=== PATIENT | female | born 1990 | race African-American/Black ===

== ENCOUNTER 2016-09-03 17:34 | Emergency (ER) | payer MEDICARE, MEDICAID ==
[~2016-09-03] VITALS: Ht 157.5 cm; Wt 55.0 kg
[2016-09-03 17:35] VITALS: BP 123/64; PULSE 128; RESP 20; TEMP 99.6; O2SAT 97
== END 2016-09-03 19:14 | disposition left against medical advice (07) ==
LOC: NED 17:34
DX: R10.9 Unspecified abdominal pain (principal); Z53.21 Procedure and treatment not carried out due to patient leaving prior to being seen by health care provider
CPT/HCPCS: 99281

== ENCOUNTER 2017-04-12 08:40 | Emergency (ER) | payer MEDICARE, MEDICAID ==
[~2017-04-12] VITALS: Ht 157.5 cm; Wt 50.0 kg
[2017-04-12 08:41] VITALS: BP 111/76; PULSE 116; RESP 20; TEMP 98.9; O2SAT 100
[2017-04-12] MEDS ORDERED: ONDANSETRON ODT 4 MG TAB PO ONE (09:15)
[2017-04-12 09:44] LABS: BACTERIA, URINE MANY /hpf; BLOOD, URINE MOD (NEG); COMMENT (UR) CULTURE INDICATED; CULTURE IF INDICATED CULTURE INDICATED; GLUCOSE,URINE NEG (NEG); KETONE, URINE 10 mg/dL (NEG); MUCUS URINE FEW /lpf (OCC); NITRITE,URINE POS (NEG); SQUAMOUS EPITHELIAL CELL URINE 6 /hpf (0-5); URINE COLOR YELLOW (YELLW/STRAW)
[2017-04-12] MEDS ORDERED: PROCHLORPERAZINE INJ 10 MG/2 ML VIAL IM PRN (10:00)
[2017-04-12] MEDS ORDERED: ONDANSETRON ODT 4 MG TAB PO SCH (10:00)
[2017-04-12] MEDS ORDERED: LOPERAMIDE HCL 2 MG CAP PO PRN (10:00)
[2017-04-12] MEDS ORDERED: CEPH-460 PO (10:10)
--- NOTE | 2017-04-12 10:10 | PD ---
HPI Chief Complaint: Abdominal Pain Time Seen by Provider: 09:04 Travel History International Travel<30 days: No Contact w/Intl Traveler<30days: No Traveled to known affect area: No History of Present Illness HPI Is a 27 year-old woman presents emergency department complaining of abdominal pain in the left side of her abdomen ongoing for the past couple days associated with some nausea, slight headache, that she attributes to drinking too much soda. No urinary symptoms. No vaginal discharge or vaginal bleeding. Last menstrual period was about 2 weeks ago. She sexually active one male partner. Otherwise has been feeling generally well and healthy. History Past Medical History Medical History: Denies Significant Hx LMP: 03/28/17 : 4 Para: 4 Past Surgical History Surgical History: No Previous Surgery Social History Alcohol Use: No Tobacco Use: No Allergies-Medications (Allergen,Severity, Reaction): Coded Allergies: acetaminophen (Unverified Adverse Reaction, Severe, Nausea/Vomiting, 04/12) codeine (Unverified Adverse Reaction, Severe, Nausea/Vomiting, 04/12/17) naproxen (Unverified Adverse Reaction, Severe, Nausea/Vomiting, 04/12/17) tramadol (Unverified Adverse Reaction, Severe, Nausea/Vomiting, 04/12/17) Reported Meds & Prescriptions Reported Meds & Active Scripts Active No Active Prescriptions or Reported Medications Review of Systems Except as stated in HPI: all other systems reviewed are Neg Physical Exam Narrative GENERAL: Well-appearing 27 year-old woman, no acute distress. SKIN: Focused skin assessment warm/dry. CARDIOVASCULAR: Regular rate and rhythm. No murmur appreciated. RESPIRATORY: No accessory muscle use. Clear to auscultation. Breath sounds equal bilaterally. GASTROINTESTINAL: Abdomen soft, non-tender, nondistended. Hepatic and splenic margins not palpable. MUSCULOSKELETAL: No obvious deformities. No clubbing. No cyanosis. No edema. NEUROLOGICAL: Awake and alert. No obvious cranial nerve deficits. Motor grossly within normal limits. Normal speech. PSYCHIATRIC: Appropriate mood and affect; insight and judgment normal. Data Data Last Documented VS Vital Signs Date Time Temp Pulse Resp B/P (MAP) Pulse Ox O2 Delivery O2 Flow Rate FiO2 04/12/17 08:41 98.9 116 20 111/76 (88) 100 Room Air Orders Orders Urinalysis - C+S If Indicated (04/12/17 08:47) Ed Urine Pregnancytest Poc (04/12/17 08:47) Ondansetron Odt (Zofran Odt) (04/12/17 09:15) Urine Culture (04/12/17 09:00) Ondansetron Odt (Zofran Odt) (04/12/17 10:00) Prochlorperazine Inj (Compazine Inj) (04/12/17 10:00) Loperamide (Imodium) (04/12/17 10:00) Labs Laboratory Tests Test 04/12/17 09:00 Urine Color YELLOW Urine Turbidity HAZY Urine pH 6.0 Urine Specific [place] 1.019 Urine Protein TRACE mg/dL Urine Glucose (UA) NEG mg/dL Urine Ketones 10 mg/dL Urine Occult Blood MOD Urine Nitrite POS Urine Bilirubin NEG Urine Urobilinogen LESS THAN 2.0 MG/DL Urine Leukocyte Esterase TRACE Urine RBC 3 /hpf Urine WBC 9 /hpf Urine Squamous Epithelial Cells 6 /hpf Urine Bacteria MANY /hpf Urine Mucus FEW /lpf Microscopic Urinalysis Comment CULTURE INDICATED MDM Medical Decision Making Medical Screen Exam Complete: Yes Emergency Medical Condition: Yes Interpretation(s) UA: UA with positive nitrites, 9 wbc's. Differential Diagnosis UTI, functional abdominal pain, gastritis, colitis, other Narrative Course While 27-year-old with left-sided abdominal pain, positive urine, no urinary or symptoms. We'll treat with antibiotics, recommend close follow-up. Diagnosis Primary Impression: Abdominal pain Additional Impression: UTI (urinary tract infection) Additional Instructions: Take antibiotics as prescribed. Return to the emergency department for any new or worsening symptoms. Med/Other Pt SpecificInfo: Prescription(s) given Scripts Cephalexin (Keflex) 500 Mg Cap 500 MG PO Q8H for Infection for 7 Days, #21 CAP 0 Refills Prov: Adalberto Mcneill MD 04/12/17 Disposition: 01 DISCHARGE HOME Condition: Stable Adalberto Mcneill MD Apr 12, 2017 10:10
== END 2017-04-12 10:20 | disposition home or self-care (01) ==
LOC: NEPC 08:40
DX: R10.9 Unspecified abdominal pain (principal); N39.0 Urinary tract infection, site not specified; B96.20 Unspecified Escherichia coli [E. coli] as the cause of diseases classified elsewhere
CPT/HCPCS: 81001; 84703; 87077; 87086; 87186; 99283

== ENCOUNTER 2017-08-25 19:16 | Emergency (ER) | payer MEDICARE, MEDICAID ==
[~2017-08-25] VITALS: Ht 157.5 cm; Wt 46.4 kg
[~2017-08-25 19:16] MED LIST: CEPH-460 PO
[2017-08-25 19:40] VITALS: BP 95/54; PULSE 85; RESP 18; TEMP 98.2; O2SAT 100
--- NOTE | 2017-08-25 20:11 | PD ---
HPI Chief Complaint: Abdominal Pain Time Seen by Provider: 20:04 Travel History International Travel<30 days: No Contact w/Intl Traveler<30days: No Traveled to known affect area: No History of Present Illness HPI 27-year-old female presents for evaluation of abdominal pain. Symptoms started 1 week ago. The pain is a sharp constant pain left lower quadrant with no aggravating or relieving factors. She reports 2 episodes of vomiting yesterday but none today. She denies vaginal bleeding or discharge, dysuria, increased urinary frequency or hesitancy, flank pain, fevers or chills, diarrhea or constipation. She is sexually active with one male partner. Her last menstrual period was July 21. She has no other complaints at this time. [facility] Past Medical History Medical History: Denies Significant Hx Diminished Hearing: No Hypertension: Yes Immunizations Current: Yes Tetanus Vaccination: Never Vaccinated Influenza Vaccination: Yes ?: Not LMP: 07/21/17 : 4 Para: 4 Miscarriage: 0 : 0 Past Surgical History Surgical History: No Previous Surgery Social History Alcohol Use: No Tobacco Use: No Substance Use: No Allergies-Medications (Allergen,Severity, Reaction): Coded Allergies: acetaminophen (Unverified Adverse Reaction, Severe, Nausea/Vomiting, ) codeine (Unverified Adverse Reaction, Severe, Nausea/Vomiting, 08/25/17) naproxen (Unverified Adverse Reaction, Severe, Nausea/Vomiting, 08/25/17) tramadol (Unverified Adverse Reaction, Severe, Nausea/Vomiting, 08/25/17) Reported Meds & Prescriptions Reported Meds & Active Scripts Active No Active Prescriptions or Reported Medications Review of Systems Except as stated in HPI: all other systems reviewed are Neg Physical Exam Narrative GENERAL: Well-nourished female no acute distress SKIN: Warm and dry. HEAD: Atraumatic. Normocephalic. EYES: Pupils equal and round. No scleral icterus. No injection or drainage. ENT: No nasal bleeding or discharge. Mucous membranes pink and moist. NECK: Trachea midline. No JVD. CARDIOVASCULAR: Regular rate and rhythm. No murmur appreciated. RESPIRATORY: No accessory muscle use. Clear to auscultation. Breath sounds equal bilaterally. GASTROINTESTINAL: Abdomen soft, mild focal left lower quadrant tenderness without guarding. No CVA tenderness. Pelvic examination the presence of a female nurse reveals thin yellow discharge. There is no cervical motion tenderness or adnexal tenderness. MUSCULOSKELETAL: No obvious deformities. No clubbing. No cyanosis. No edema. NEUROLOGICAL: Awake and alert. No obvious cranial nerve deficits. Motor grossly within normal limits. Normal speech. PSYCHIATRIC: Appropriate mood and affect; insight and judgment normal. Data Data Last Documented VS Vital Signs Date Time Temp Pulse Resp B/P (MAP) Pulse Ox O2 Delivery O2 Flow Rate FiO2 08/25/17 19:40 98.2 85 18 95/54 (68) 100 Orders Orders Complete Blood Count With Diff (08/25/17 20:08) Comprehensive Metabolic Panel (08/25/17 20:08) Gc And Chlamydia Pcr (08/25/17 20:08) Wet Prep Profile (08/25/17 20:08) Urinalysis - C+S If Indicated (08/25/17 20:08) Ed Urine Pregnancytest Poc (08/25/17 20:08) Ed Discharge Order (08/25/17 21:51) Azithromycin Powd Pack (Zithromax Powd P (08/25/17 22:00) Ceftriaxone Inj (Rocephin Inj) (08/25/17 22:00) Lidocaine 1% Inj (50 Ml) (Xylocaine 1% I (08/25/17 22:00) Lidocaine 1% Inj (Xylocaine 1% Inj) (08/25/17 21:58) Lidocaine 1% Inj (Xylocaine 1% Inj) (08/25/17 22:00) Ibuprofen (Motrin) (08/25/17 22:15) Ondansetron Odt (Zofran Odt) (08/25/17 22:15) Labs Laboratory Tests Test 08/25/17 20:30 White Blood Count 6.2 TH/MM3 Red Blood Count 4.74 MIL/MM3 Hemoglobin 12.3 GM/DL Hematocrit 37.2 % Mean Corpuscular Volume 78.6 FL Mean Corpuscular Hemoglobin 25.9 PG Mean Corpuscular Hemoglobin Concent 32.9 % Red Cell Distribution Width 14.4 % Platelet Count 227 TH/MM3 Mean Platelet Volume 8.5 FL Neutrophils (%) (Auto) 57.1 % Lymphocytes (%) (Auto) 34.1 % Monocytes (%) (Auto) 6.9 % Eosinophils (%) (Auto) 1.5 % Basophils (%) (Auto) 0.4 % Neutrophils # (Auto) 3.5 TH/MM3 Lymphocytes # (Auto) 2.1 TH/MM3 Monocytes # (Auto) 0.4 TH/MM3 Eosinophils # (Auto) 0.1 TH/MM3 Basophils # (Auto) 0.0 TH/MM3 CBC Comment DIFF FINAL Differential Comment Urine Color YELLOW Urine Turbidity HAZY Urine pH 5.5 Urine Specific [place] 1.020 Urine Protein NEG mg/dL Urine Glucose (UA) NEG mg/dL Urine Ketones NEG mg/dL Urine Occult Blood TRACE Urine Nitrite NEG Urine Bilirubin NEG Urine Urobilinogen LESS THAN 2.0 MG/DL Urine Leukocyte Esterase NEG Urine RBC 2 /hpf Urine WBC 3 /hpf Urine Squamous Epithelial Cells 9 /hpf Urine Bacteria OCC /hpf Urine Hyaline Casts 1 /lpf Microscopic Urinalysis Comment CULT NOT INDICATED Clue Cells (Wet Prep) NONE SEEN Vaginal Trichomonas (Wet Prep) NONE SEEN Vaginal Yeast (Wet Prep) NONE SEEN Blood Urea Nitrogen 10 MG/DL Creatinine 0.72 MG/DL Random Glucose 69 MG/DL Total Protein 7.5 GM/DL Albumin 3.8 GM/DL Calcium Level 9.5 MG/DL Alkaline Phosphatase 45 U/L Aspartate Amino Transf (AST/SGOT) 10 U/L Alanine Aminotransferase (ALT/SGPT) 13 U/L Total Bilirubin 0.2 MG/DL Sodium Level 138 MEQ/L Potassium Level 3.6 MEQ/L Chloride Level 104 MEQ/L Carbon Dioxide Level 28.2 MEQ/L Anion Gap 6 MEQ/L Estimat Glomerular Filtration Rate 118 ML/MIN MDM Medical Decision Making Medical Screen Exam Complete: Yes Emergency Medical Condition: Yes Medical Record Reviewed: Yes Differential Diagnosis Ovarian cyst, ovarian torsion, PID, tubo-ovarian abscess, ectopic , cystitis, diverticulitis Narrative Course 27-year-old female with a 4 quadrant abdominal pain for 1 week. Physical examination is reassuring. She has mild left lower quadrant tenderness but no adnexal tenderness on pelvic examination. There is thin yellow discharge on examination and wet prep including gonorrhea probe were obtained. Wet prep is negative. Lab work is unremarkable. Pending GC probe she declines empiric treatment and would prefer to wait for the results of the clinic gonorrhea probe. She will be discharged. A dose of ibuprofen and Zofran were administered prior to discharge. Diagnosis Primary Impression: Abdominal pain Additional Instructions: Stay well hydrated and well-nourished. Follow-up with primary care physician. Return for any acutely new or worsening symptoms. Med/Other Pt SpecificInfo: No Change to Meds Scripts No Active Prescriptions or Reported Meds Disposition: 01 DISCHARGE HOME Condition: Stable Nile Jerez Aug 25, 2017 20:11
[2017-08-25 20:51] LABS: AUTOMATED NEUTROPHIL # 3.5 TH/MM3 (1.8-7.7); BASOPHIL % 0.4 % (0.0-2.0); EOSINOPHIL # 0.1 TH/MM3 (0-0.4); EOSINOPHIL % 1.5 % (0.0-4.0); HEMATOCRIT 37.2 % (35.0-46.0); HEMOGLOBIN 12.3 GM/DL (11.6-15.3); LYMPH % 34.1 % (9.0-44.0); LYMPHOCYTE # 2.1 TH/MM3 (1.0-4.8); MEAN CELL VOLUME 78.6 FL (80.0-100.0); MEAN CORPUSCULAR HEMOGLOBIN 25.9 PG (27.0-34.0); MEAN CORPUSCULAR HGB CONC 32.9 % (32.0-36.0); MEAN PLATELET VOLUME 8.5 FL (7.0-11.0); MONO % 6.9 % (0.0-8.0); MONOCYTE # 0.4 TH/MM3 (0-0.9); NEUT % 57.1 % (16.0-70.0); PLATELET COUNT 227 TH/MM3 (150-450); RED BLOOD COUNT 4.74 MIL/MM3 (4.00-5.30); RED CELL DISTRIBUTION WIDTH 14.4 % (11.6-17.2); WHITE BLOOD COUNT 6.2 TH/MM3 (4.0-11.0)
[2017-08-25 20:56] LABS: BACTERIA, URINE OCC /hpf; BILIRUBIN, URINE NEG (NEG); BLOOD, URINE TRACE (NEG); GLUCOSE,URINE NEG (NEG); HYALINE CAST, URINE 1 /lpf (RARE); KETONE, URINE NEG (NEG); NITRITE,URINE NEG (NEG); PH, URINE 5.5 (5.0-8.5); SQUAMOUS EPITHELIAL CELL URINE 9 /hpf (0-5); URINE COLOR YELLOW (YELLW/STRAW); URINE LEUKOCYTE ESTERASE NEG (NEG)
[2017-08-25 21:14] LABS: ALBUMIN 3.8 GM/DL (3.4-5.0); AST (GOT) 10 U/L (15-37); BICARBONATE 28.2 MEQ/L (21.0-32.0); BLOOD UREA NITROGEN 10 MG/DL (7-18); CALCIUM 9.5 MG/DL (8.5-10.1); CHLORIDE 104 MEQ/L (98-107); CREATININE 0.72 MG/DL (0.50-1.00); GLOMERULAR FILTRATION RATE 118 ML/MIN (>89); GLUCOSE,RANDOM 69 MG/DL (74-106); SODIUM (NA) 138 MEQ/L (136-145)
[2017-08-25 21:15] LABS: ALT (GPT) 13 U/L (10-53)
[2017-08-25 21:17] LABS: ALKALINE PHOSPHATASE 45 U/L (45-117); TOTAL BILIRUBIN ADULT 0.2 MG/DL (0.2-1.0); TOTAL PROTEIN 7.5 GM/DL (6.4-8.2)
[2017-08-25] MEDS ORDERED: LIDOCAINE HCL 1% 20 ML VIAL ONE (21:58)
[2017-08-25] MEDS ORDERED: LIDOCAINE HCL 1% 20 ML VIAL INFIL ONE (22:00)
[2017-08-25] MEDS ORDERED: LIDOCAINE HCL 1% 50 ML VIAL IM ONE (22:00)
[2017-08-25] MEDS ORDERED: AZITHROMYCIN PWD FOR SUSP 1 GM PACKET PO ONE (22:00)
[2017-08-25] MEDS ORDERED: cefTRIAXone 250 MG VIAL IM ONE (22:00)
[2017-08-25] MEDS ORDERED: ONDANSETRON ODT 4 MG TAB PO ONE (22:15)
[2017-08-25] MEDS ORDERED: IBUPROFEN 800 MG TAB PO ONE (22:15)
== END 2017-08-25 22:27 | disposition home or self-care (01) ==
LOC: NEPD 19:16
DX: R10.32 Left lower quadrant pain (principal); R11.10 Vomiting, unspecified; I10 Essential (primary) hypertension; Z88.5 Allergy status to narcotic agent; Z88.6 Allergy status to analgesic agent; Z88.8 Allergy status to other drugs, medicaments and biological substances
CPT/HCPCS: 80053; 81001; 84703; 85025; 87210; 87491; 87591; 99283